=== PATIENT | male | born 1990 | race Caucasian/White ===

== ENCOUNTER 2017-06-06 00:30 | Inpatient (IN) | payer OTHER ==
[~2017-06-06] VITALS: Ht 185.4 cm; Wt 77.7 kg
[2017-06-06] MEDS ORDERED: PRILOSEC 20MG20 MG PO (00:35)
[2017-06-06 01:06] LABS: HEMATOCRIT 43.2 % (42.0-52.0); HEMOGLOBIN 14.3 g/dl (13.5-18.0); MEAN CELL VOLUME 79 fl (80.0-100.0); MEAN CORPUSCULAR HEMOGLOBIN 26 pg (27.0-31.0); MEAN CORPUSCULAR HGB CONC 33 g/dl (33.0-37.0); MEAN PLATELET VOLUME 9.1 fl (7.4-10.4); PLATELET COUNT 481 K/mm3 (130-400); RED BLOOD COUNT 5.49 M/mm3 (4.20-5.60); REDCELL DISTRIBUTION WIDTH-CV 14.6 % (11.5-14.5)
[2017-06-06 01:08] LABS: WHITE BLOOD COUNT 33.6 K/mm3 (4.8-10.8)
[2017-06-06 01:09] LABS: ADD PATHOLOGY DIFF REVIEW NO
[2017-06-06 01:20] LABS: ADJUSTED CALCIUM 8.9 mg/dL (8.4-10.2); BILIRUBIN,TOTAL 1.4 mg/dL (0.0-1.0); C-REACTIVE PROTEIN 1.6 mg/dL (0.0-0.9); CALCIUM 8.9 mg/dL (8.4-10.2); CREATININE, serum 1.21 mg/dL (0.66-1.25); TOTAL PROTEIN 7.4 gm/dL (6.4-8.2)
[2017-06-06 01:25] LABS: POTASSIUM 2.8 mmol/L (3.4-5.0)
[2017-06-06 01:31] LABS: BAND 21 % (0-10); BASOPHIL 1 % (0-2); NEUTROPHILS 77 % (42.0-75.2); PLATELET ESTIMATE INCREASED (NORMAL); TOTAL CELLS COUNTED 102
[2017-06-06 02:45] LABS: PH 6 (5-8); SQUAMOUS EPITHELIAL 0-2 /hpf; URINE APPEARANCE Clear; URINE BACTERIA None Seen /hpf; URINE BILIRUBIN Negative (NEGATIVE); URINE BLOOD Negative (NEGATIVE); URINE COLOR Yellow; URINE GLUCOSE Negative (NEGATIVE); URINE KETONE 1+ (NEGATIVE); URINE RBC 0-2 /hpf; URINE UROBILINOGEN Negative (NEGATIVE)
[2017-06-06 03:58] VITALS: BP 134/84; PULSE 94; TEMP 98.1
[2017-06-06 10:00] VITALS: BP 130/84; PULSE 101; TEMP 98.5
[2017-06-06 14:09] VITALS: BP 109/74; PULSE 73; TEMP 97.7
[2017-06-06 17:34] VITALS: BP 107/67; PULSE 86; TEMP 98.1
[2017-06-06 22:22] VITALS: BP 118/67; PULSE 69; TEMP 99
[2017-06-07 02:34] VITALS: BP 118/75; PULSE 81; TEMP 98.5
[2017-06-07 05:58] VITALS: BP 119/75; PULSE 76; TEMP 98
[2017-06-07 07:31] LABS: BASO % 0.2 % (0.0-2.0); GRAN % 80.8 % (42.2-75.2); LYMPH # 0.7 (1.2-3.4); LYMPH % 14.5 % (20.0-51.0); MEAN CELL VOLUME 82 fl (80.0-100.0); MEAN CORPUSCULAR HGB CONC 32 g/dl (33.0-37.0); MEAN PLATELET VOLUME 10.2 fl (7.4-10.4); MONO # 0.2 (0.1-0.6); MONO % 4.1 % (1.7-9.3); RED BLOOD COUNT 4.17 M/mm3 (4.20-5.60); REDCELL DISTRIBUTION WIDTH-CV 14.7 % (11.5-14.5); WHITE BLOOD COUNT 4.9 K/mm3 (4.8-10.8)
[2017-06-07 07:33] LABS: HEMATOCRIT 34.3 % (42.0-52.0); HEMOGLOBIN 10.8 g/dl (13.5-18.0); MEAN CORPUSCULAR HEMOGLOBIN 26 pg (27.0-31.0); PLATELET COUNT 308 K/mm3 (130-400)
[2017-06-07 07:41] LABS: ADJUSTED CALCIUM 9.3 mg/dL (8.4-10.2); ALBUMIN 2.8 gm/dL (3.5-5.0); BILIRUBIN,TOTAL 0.9 mg/dL (0.0-1.0); CALCIUM 8.3 mg/dL (8.4-10.2); CREATININE, serum 0.86 mg/dL (0.66-1.25); POTASSIUM 3.7 mmol/L (3.4-5.0); TOTAL PROTEIN 5.5 gm/dL (6.4-8.2)
[2017-06-07 09:30] VITALS: BP 115/70; PULSE 66; TEMP 97.5
[2017-06-07 13:56] VITALS: BP 136/80; PULSE 78; TEMP 97.8
[2017-06-07 17:47] VITALS: BP 140/94; PULSE 87; TEMP 97.9
[2017-06-07 22:02] VITALS: BP 115/78; PULSE 73; TEMP 98.2
[2017-06-08] VITALS (7 sets, daily range): BP systolic 115–142; BP diastolic 52–98; PULSE 56–77; TEMP 97.6–98.5
[2017-06-09 05:44] VITALS: BP 119/76; PULSE 56; TEMP 97.6
[2017-06-09 09:42] VITALS: BP 127/90; PULSE 62; TEMP 98.3
[2017-06-09 13:38] VITALS: BP 138/98; PULSE 66; TEMP 98
[2017-06-09 16:53] VITALS: BP 133/85; PULSE 65; TEMP 98
[2017-06-09 22:26] VITALS: BP 116/84; PULSE 60; TEMP 98.4
[2017-06-10] VITALS (11 sets, daily range): BP systolic 111–144; BP diastolic 46–107; PULSE 52–84; TEMP 97.3–98.1
== END 2017-06-10 18:11 | disposition home or self-care (01) | DRG 386 ==
LOC: COL.ER 00:30 → SURG 01:44
PROVIDERS: Emergency Medicine; Internal Medicine Gastroenterology; Surgery
PROC: 0DBB8ZX Excision of Ileum, Via Natural or Artificial Opening Endoscopic, Diagnostic (ICD-10-PCS; principal; 2017-06-10 12:00)
DX: K50.012 Crohn's disease of small intestine with intestinal obstruction (principal); E44.0 Moderate protein-calorie malnutrition
CPT/HCPCS: C9113; J1170; J1720; J1956; J2250; J2405; J2550; J3010; J3480; J7030; Q9967